=== PATIENT | female | born 1990 | race Caucasian/White ===

== ENCOUNTER 2018-12-04 23:46 | Emergency (ER) | payer SELFPAY ==
[2018-12-05] MEDS ORDERED: diphenhydrAMINE HCL 50 MG/ML VIAL IM ONE (00:04)
[2018-12-05] MEDS ORDERED: methylPREDNISolone SODIUM SUC 125 MG/2 ML VIAL IM ONE (00:05)
--- NOTE | 2018-12-05 00:10 | ED.PDOC ---
History of Present Illness - General Chief Complaint: Skin/Abrasion/Tear Stated Complaint: rash over body Time Seen by Provider: 12/05/18 00:01 Source: patient Exam Limitations: no limitations - History of Present Illness Initial Comments: Pt has had a pruritic rash to trunk and limbs x 1 hr. Denies SOB, sorethroat or lightheadedness Severity: moderate Location: face, torso Improving Factors: nothing Worsening Factors: nothing Associated Symptoms: hives, itching Allergies/Adverse Reactions: Allergies NO KNOWN ALLERGY Allergy (Unverified 09/16/14 22:12) Home Medications: Ambulatory Orders Ibuprofen 600 mg PO TID #30 tab 09/16/14 Methylprednisolone [Medrol Dose Jason] 4 mg PO DAILY #1 pack 09/16/14 Tramadol HCl 50 mg PO BEDTIME PRN #10 tab 09/16/14 Prednisone [Deltasone] 20 mg PO BID #10 tab 12/05/18 hydrOXYzine HCl [Atarax] 25 mg PO Q6HR PRN #15 tab 12/05/18 Review of Systems - Review of Systems Constitutional: States: no symptoms reported EENTM: States: no symptoms reported Respiratory: Denies: cough, short of breath, wheezing Cardiology: Denies: chest pain, edema Gastrointestinal/Abdominal: Denies: nausea, vomiting Genitourinary: States: no symptoms reported Musculoskeletal: States: no symptoms reported Skin: States: rash Neurological: States: no symptoms reported Endocrine: States: no symptoms reported Past Medical History (General) - Patient Medical History Hx MRSA: Yes - Leg 2009 MRSA Source:: Wound - Vaccination History Hx Influenza Vaccination: No - Female History Patient : No Family Medical History - Family History Mother Family History: Unknown Physical Exam - Physical Exam General Appearance: Agitated, Alert Eyes, Ears, Nose, Throat Exam: PERRL/EOMI, pharynx normal Neck: non-tender, supple Cardiovascular/Chest: normal peripheral pulses, regular rate, rhythm Respiratory: lungs clear, normal breath sounds Gastrointestinal/Abdominal: normal bowel sounds, non tender, soft Extremity: normal range of motion, non-tender Skin Exam: warm/dry Skin Problem Location: face, torso Skin Character: urticarial Lymphatic: no adenopathy Departure - Departure Clinical Impression: Urticaria Disposition: Discharge to Home or Self Care Departure Forms: ED Discharge - Pt. Copy, Patient Portal Self Enrollment Prescriptions: hydrOXYzine HCl [Atarax] 25 mg PO Q6HR PRN #15 tab PRN Reason: For Itching Prednisone [Deltasone] 20 mg PO BID #10 tab Home Medications: Ambulatory Orders Ibuprofen 600 mg PO TID #30 tab 09/16/14 Methylprednisolone [Medrol Dose Jason] 4 mg PO DAILY #1 pack 09/16/14 Tramadol HCl 50 mg PO BEDTIME PRN #10 tab 09/16/14 Prednisone [Deltasone] 20 mg PO BID #10 tab 12/05/18 hydrOXYzine HCl [Atarax] 25 mg PO Q6HR PRN #15 tab 12/05/18
[2018-12-05 00:15] VITALS: TEMP 98.5; O2SAT 98
[2018-12-05] MEDS ORDERED: FAMOTIDINE 20 MG TAB ONE (00:23)
[2018-12-05 01:28] VITALS: BP 98/77
[2018-12-05] MEDS ORDERED: FAMOTIDINE 20 MG TAB PO ONE (12:06)
== END 2018-12-05 01:28 | disposition home or self-care (01) ==
LOC: ER 23:46
DX: L50.9 Urticaria, unspecified (principal)
CPT/HCPCS: J1200; J2930